=== PATIENT | male | born 1940 | race Caucasian/White ===

== ENCOUNTER 2020-06-19 12:02 | Emergency (ER) | payer MEDICARE ==
[~2020-06-19] VITALS: Ht 180.3 cm; Wt 42.0 kg
[2020-06-19 12:17] VITALS: BP 133/98
== END 2020-06-19 13:23 | disposition home or self-care (01) ==
LOC: ER 12:02
DX: L03.312 Cellulitis of back [any part except buttock and flank] (principal)
CPT/HCPCS: 99281; 99283

== ENCOUNTER 2020-07-21 08:52 | Emergency (ER) | payer MEDICARE ==
[~2020-07-21] VITALS: Ht 180.3 cm; Wt 54.5 kg
[2020-07-21 08:55] VITALS: BP 168/90
--- NOTE | 2020-07-21 09:05 | NUR ---
PATIENT HERE TO HAVE LESION ON FACE CHECKED AND LEFT EYE REDNESS. STATES HE WAS TOLD THAT HE HAS A CATARACT IN LEFT EYE. HAS LIVED IN THIS AREA X 1 YEAR AND NEEDS SPECIALIST REFERRALS.
[2020-07-21] MEDS ORDERED: ERYT1OIN6 LEFTEYE (10:08)
== END 2020-07-21 10:16 | disposition home or self-care (01) ==
LOC: ER 08:53
DX: H10.9 Unspecified conjunctivitis (principal); F17.200 Nicotine dependence, unspecified, uncomplicated; Z79.2 Long term (current) use of antibiotics
CPT/HCPCS: 99283